=== PATIENT | male | born 1970 | race Caucasian/White ===

== ENCOUNTER 2021-10-07 08:22 | Emergency (ER) | payer OTHER, SELFPAY ==
--- NOTE | ~2021-10-07 | XR_ITS ---
EXAMINATION: XR hand LT min 3V DATE: 10/07/2021 09:18 INDICATION: Laceration of left second and third digits. TECHNIQUE: 3 views of left hand were obtained. COMPARISON: None. FINDINGS: Bone alignment is normal. No fracture. 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 There are lacerations of the tips of the second and third digits. IMPRESSION: 1. No fracture or radiopaque foreign body. Reviewed, dictated and finalized at location [facility]
[2021-10-07 08:30] VITALS: BP 130/78; PULSE 84; RESP 18; TEMP 36.8; O2SAT 100
--- NOTE | 2021-10-07 09:02 | ED.UPPEXIN ---
HPI - Extremity Injury (Upper) General Chief Complaint: Wound/Laceration Stated Complaint: finger injury Time Seen by Provider: 10/07/21 08:24 Source: patient Mode of arrival: ambulatory Limitations: no limitations History of Present Illness HPI narrative: Patient is a 51-year-old male complaining of injuring his index and middle finger with an electric saw while trying to cut a wood yesterday. Patient states that he cleaned it out with peroxide and irrigated last night. Patient denies any other pain or injury. Other injuries: none Severity scale (1-10): 4 Relieving factors: none Exacerbating factors: none Related Data Allergies Allergy/AdvReac Type Severity Reaction Status Date / Time No Known Allergies Allergy Mild Verified 12/12/09 13:49 Review of Systems Review of Systems: All systems reviewed & are unremarkable except as noted in HPI and below PMFSH Comments Past medical history: None Family history: None Social history: Non-smoker no EtOH or drug use Exam Const: General: no acute distress and alert Orientation/consciousness: patient oriented x3 HENMT: Head: normal to inspection Eyes: Conjunctivae: conjunctivae normal Neck: Neck: normal visual inspection Resp: Effort & Inspection: normal respiratory effort Neuro: General: patient oriented x3 and moves all extremities Extrem: Other: Laceration, irregular, distal tip laceration with excised tissue of the second and third digit, full range of motion, neurovascularly intact Course Vital Signs Vital signs: Vital Signs Temperature 36.8 C 10/07/21 08:30 Pulse Rate 84 10/07/21 08:30 Respiratory Rate 18 10/07/21 08:30 Blood Pressure 130/78 10/07/21 08:30 Pulse Oximetry 100 10/07/21 08:30 Temperature 36.8 C 10/07/21 08:30 Pulse Rate 84 10/07/21 08:30 Respiratory Rate 18 10/07/21 08:30 Blood Pressure 130/78 10/07/21 08:30 Pulse Oximetry 100 10/07/21 08:30 MDM - Extremity Injury (Upper) MDM Narrative Medical decision making narrative: No repair done since there is loss of tissue, unable to suture, advised to follow-up with hand surgeon Dr. Crow Discharge Plan Discharge Clinical Impression: Finger laceration Qualifiers: Encounter type: initial encounter Finger: index finger Damage to nail status: without damage Foreign body presence: without foreign body Laterality: left Qualified Code(s): S61.211A - Laceration without foreign body of left index finger without damage to nail, initial encounter Laceration of left middle finger Qualifiers: Encounter type: initial encounter Damage to nail status: without damage Foreign body presence: without foreign body Qualified Code(s): S61.213A - Laceration without foreign body of left middle finger without damage to nail, initial encounter Patient Disposition: Home, Self-Care Condition: Improved Instructions: Antibiotic Form, Laceration (ED) Prescriptions: New cephalexin 500 mg capsule 500 mg PO Q12H 5 Days Qty: 10 RF: 0 Follow-up/Referrals: Fabio Damon MD [Physician] - 10/08/21 (Call for an appointment) PHYSICIAN,FOOD SERVICE ORDER CLERK [Primary Care Provider] - Time of Disposition: 11:01
[2021-10-07] MEDS: TETANUS,DIPHTHERIA,AC PERTUSSIS ADULT (0.5 ML) BOOSTRIX IM (09:29)
[2021-10-07] MEDS: LIDOCAINE, EPINEPHRINE, TETRACAINE VISCOUS SOLN 3 ML TOPICAL (10:15)
[2021-10-07 11:15] VITALS: BP 141/74; PULSE 76; RESP 18; O2SAT 99
== END 2021-10-07 11:20 | disposition home or self-care (01) ==
PROVIDERS: Emergency Provider Emergency Medicine
DX: S61.211A Laceration without foreign body of left index finger without damage to nail, initial encounter (principal); S61.213A Laceration without foreign body of left middle finger without damage to nail, initial encounter; Z23 Encounter for immunization; W29.8XXA Contact with other powered hand tools and household machinery, initial encounter
CPT/HCPCS: 12001; 73130; 90471; 90715; 99283